=== PATIENT | male | born 1940 | race Caucasian/White ===

== ENCOUNTER 2017-06-15 09:32 | Emergency (ER) | payer OTHER ==
[~2017-06-15] VITALS: Ht 182.9 cm; Wt 117.9 kg
== END 2017-06-15 17:00 | disposition home or self-care (01) ==
LOC: ER 09:32
DX: R33.8 Other retention of urine (principal); N39.0 Urinary tract infection, site not specified

== ENCOUNTER 2017-06-18 08:13 | Emergency (ER) | payer OTHER ==
[~2017-06-18] VITALS: Ht 182.9 cm; Wt 115.7 kg
[2017-06-18] MEDS ORDERED: TAMS0.4C (08:36)
[2017-06-18] MEDS ORDERED: BACTRIM DS TAB1 EACH PO (11:05)
== END 2017-06-18 12:23 | disposition home or self-care (01) ==
LOC: ER 08:13
DX: N40.1 Benign prostatic hyperplasia with lower urinary tract symptoms (principal); R33.8 Other retention of urine; N39.0 Urinary tract infection, site not specified; B96.20 Unspecified Escherichia coli [E. coli] as the cause of diseases classified elsewhere

== ENCOUNTER → 2018-01-10 | Emergency (ER) | payer OTHER ==
[~2018-01-10] VITALS: Ht 175.3 cm; Wt 81.6 kg
[~2018-01-10] MED LIST: ASPIR 8181 MG; BACTRIM DS TAB1 EACH PO; TAMS0.4C
== END | disposition home or self-care (01) ==
LOC: ER 09:41
DX: R42 Dizziness and giddiness (principal); K59.09 Other constipation

== ENCOUNTER 2020-04-26 13:35 | Outpatient (CLI) | payer OTHER | END 2020-04-26 22:22 | disposition home or self-care (01) | LOC: PPH VACUNA 13:35 | PROVIDERS: ATTEND Emergency Medicine Pediatric Emergency Medicine | DX: Z23 Encounter for immunization (principal) ==